=== PATIENT | female | born 1945 | race Caucasian/White ===

== ENCOUNTER 2018-01-22 15:46 | Inpatient (IN) | payer OTHER ==
[~2018-01-22] VITALS: Ht 149.9 cm; Wt 52.2 kg
[2018-02-03] MEDS ORDERED: [UNRECOGNIZED DRUG - OTHER] PO (10:56)
[2018-02-03] MEDS ORDERED: METFORMIN HCL500 MG PO (10:56)
[2018-02-03] MEDS ORDERED: ZESTRIL30 MG PO (10:56)
== END 2018-02-13 12:04 | disposition home or self-care (01) | DRG 331 ==
LOC: EDSTATUS 02-03 09:30 → ADM 02-03 09:30 → SURH 02-10 08:39 → O/R 02-10 08:39 → SURG 02-10 09:30 → SURH 02-10 13:24 → O/R 02-10 17:48 → SURH 02-10 20:05
PROVIDERS: Colon & Rectal Surgery
PROC: 07TC4ZZ Resection of Pelvis Lymphatic, Percutaneous Endoscopic Approach (ICD-10-PCS; 2018-02-10)
PROC: 0DTU4ZZ Resection of Omentum, Percutaneous Endoscopic Approach (ICD-10-PCS; 2018-02-10)
PROC: 0DTF4ZZ Resection of Right Large Intestine, Percutaneous Endoscopic Approach (ICD-10-PCS; principal; 2018-02-10 10:15)
DX: D12.2 Benign neoplasm of ascending colon (principal); D12.0 Benign neoplasm of cecum; I10 Essential (primary) hypertension; E11.9 Type 2 diabetes mellitus without complications; E78.00 Pure hypercholesterolemia, unspecified

== ENCOUNTER 2019-03-05 06:00 | Day surgery (SDC) | payer OTHER ==
[~2019-03-05 06:00] MED LIST: METFORMIN HCL500 MG PO; ZESTRIL30 MG PO; [UNRECOGNIZED DRUG - OTHER] PO
== END 2019-03-05 21:00 | disposition home or self-care (01) ==
LOC: CIR.AMB 06:00
DX: K64.2 Third degree hemorrhoids (principal)